=== PATIENT | female | born 1980 | race Caucasian/White ===

== ENCOUNTER 2018-11-06 01:33 | Emergency (ER) | payer OTHER ==
[~2018-11-06] VITALS: Ht 162.6 cm; Wt 67.6 kg
== END 2018-11-06 05:54 | disposition home or self-care (01) ==
LOC: ER 01:33
DX: R00.2 Palpitations (principal)

== ENCOUNTER 2024-01-13 14:41 | Emergency (ER) | payer OTHER ==
[~2024-01-13] VITALS: Ht 162.6 cm; Wt 70.3 kg
[2024-01-13] MEDS ORDERED: ORPHENADRINE CITRATE 30 MG/ML AMPUL IM STA (16:56)
[2024-01-13] MEDS ORDERED: KETOROLAC TROMETHAMINE 30 MG VIAL IM STA ×2 (16:56→20:58)
[2024-01-13] MEDS ORDERED: KETOROLAC TROMETHAMINE 30 MG VIAL ONE ×2 (17:01→21:01)
[2024-01-13] MEDS ORDERED: ORPHENADRINE CITRATE 30 MG/ML AMPUL ONE (17:01)
[2024-01-13] MEDS ORDERED: DICLOFENAC POTA50 MG PO (21:03)
[2024-01-13] MEDS ORDERED: NORFLEX100MG PO (21:03)
== END 2024-01-13 21:10 | disposition home or self-care (01) ==
LOC: ER 14:42
DX: S29.8XXA Other specified injuries of thorax, initial encounter (principal); V49.88XA Car occupant (driver) (passenger) injured in other specified transport accidents, initial encounter; Y93.89 Activity, other specified; Y92.89 Other specified places as the place of occurrence of the external cause; Y99.8 Other external cause status; Z91.013 Allergy to seafood